=== PATIENT | male | born 1980 | race Two or more races ===

== ENCOUNTER 2023-04-19 09:45 | Emergency (ER) | payer SELFPAY ==
[~2023-04-19] VITALS: Ht 175.3 cm; Wt 73.0 kg
[2023-04-19 09:53] VITALS: BP 131/92; PULSE 100; RESP 16; TEMP 98.1; O2SAT 97
== END 2023-04-19 10:55 | disposition home or self-care (01) ==
LOC: ER 10:28
DX: S61.200A Unspecified open wound of right index finger without damage to nail, initial encounter (principal); Z88.0 Allergy status to penicillin; X58.XXXA Exposure to other specified factors, initial encounter; Y93.89 Activity, other specified; Y92.89 Other specified places as the place of occurrence of the external cause; Y99.8 Other external cause status
CPT/HCPCS: 99283